=== PATIENT | male | born 1945 | race Caucasian/White ===

== ENCOUNTER → 2018-11-23 | Outpatient (CLI) | payer MEDICARE, BC ==
[~2018-11-23] MED LIST: ALBU3IS; ALBU90OI INH; ALBU90OI6; ALPR.25 PO; AMLO5 PO; Accuneb0.63 MG/3; BUDE6HFA INH; FAMO20 PO; HYDCHL25 PO; HYDCHLSU; HYDROEYE PO; LEVFLO500 PO; LISI20 PO; MONT10T PO; Multivitamin1 EAC1 PO; PRED20 PO; TAMS.4ER PO; TIOT18
== END | disposition home or self-care (01) ==
LOC: LAB SHORT 13:45 → PLD 13:45
DX: C44.729 Squamous cell carcinoma of skin of left lower limb, including hip (principal)
CPT/HCPCS: 88305

== ENCOUNTER → 2018-12-20 | Outpatient (CLI) | payer MEDICARE, BC | END | disposition home or self-care (01) | LOC: PLD 14:04 → LAB SHORT 14:04 | DX: C44.729 Squamous cell carcinoma of skin of left lower limb, including hip (principal) | CPT/HCPCS: 88305 ==

== ENCOUNTER → 2019-05-23 | Outpatient (CLI) | payer MEDICARE, BC | END | disposition home or self-care (01) | LOC: LAB SHORT 10:15 → PLD 10:15 | DX: L57.0 Actinic keratosis (principal) | CPT/HCPCS: 88305 ==

== ENCOUNTER → 2019-11-28 | Outpatient (CLI) | payer MEDICARE, BC | END | disposition home or self-care (01) | LOC: LAB SHORT 11:15 → PLD 11:15 | DX: L82.1 Other seborrheic keratosis (principal) | CPT/HCPCS: 88305 ==

== ENCOUNTER 2020-01-09 06:01 | Day surgery (SDC) | payer MEDICARE, BC ==
[~2020-01-09] VITALS: Ht 172.7 cm; Wt 114.4 kg
[~2020-01-09 06:01] MED LIST changes: -ALBU3IS; +ALBU3IS NEB; +AZIT250 PO; +Atrovent Inha12.9 GM NEB; +BUDE10.22 INH; +Doxycycline Mo100 M1 PO
[2020-01-09] MEDS ORDERED: CHLO25B PO (06:22)
[2020-01-09] MEDS ORDERED: METO25ER PO (06:22)
--- NOTE | 2020-01-09 10:26 | NUR ---
Ambulatory in Day Surgery. Surgical site prepped with 2% Chlorhexidine cloth wipe. History, Chart, Medications and Allergies reviewed before start of procedure.Lungs clear T/O to Auscultation. Patient confirms NPO status and agrees with scheduled surgery. Pre-Op teaching done. Pt verbalizes understanding. Patient States Post-Procedure ride home has been arranged. Patient reports completing Chlorhexadine shower X2 prior to admission to hospital.
--- NOTE | 2020-01-09 11:28 | NUR ---
POST OP: REPORT RECEIVED FROM JUANJOSE, FISCAL ACCOUNTING CLERK AT BEDSIDE. UPON ASSESSMENT PT IS A/O, VSS, SITTING UP IN BED APPEARS COMFORTABLE. SURGICAL SITE WNL. PT AT BEDSIDE. WILL CTM
--- NOTE | 2020-01-09 14:15 | NUR ---
This patient gave this student nurse permission to aid in his care for the morning of 01/10/2020.
--- NOTE | 2020-01-09 19:14 | NUR ---
SUMMARY: NO ACUTE CHANGE SINCE POST OP. PAIN SEEMS TO BE WELL MANAGED WITH 2 OXYCODONE. PT ISAIAH REG DIET. ABLE TO AMBULATE WITH THERAPY. SURGICAL SITE WNL. NO SAFETY CONCERNS. REPORT GIVEN TO PARAS OLIVEROS
--- NOTE | 2020-01-10 03:31 | NUR ---
SHIFT SUMMARY POD 1 S/P LEFT TKA, DRESSING C.D.I W/POLAR PACK IN PLACE ISAIAH. PAIN MANAGED WITH PO MEDICATION. TOLERATING REGULAR DIET. DENIES N/V. OUT OF BED W/FWW AND SBA. AMBULATING IN HALLWAY. VSS. PLAN FOR POSSIBLE DISCHARGE TODAY.
--- NOTE | 2020-01-10 03:53 | NUR ---
ASSUMING CARE OF PT AT THIS TIME. REPORT RECIEVED FROM KELLEY OLIVEROS.
[2020-01-10 04:42] LABS: BASOPHILS ABSOLUTE AUTO 0.02 K/mm3 (0.00-0.23); BASOPHILS PERCENT AUTO 0 % (0-2); EOSINOPHILS ABSOLUTE AUTO 0.06 K/mm3 (0.00-0.68); EOSINOPHILS PERCENT AUTO 1 % (0-6); Hematocrit 37.6 % (37.0-53.0); Hemoglobin 12.6 g/dL (13.5-17.5); IMMATURE GRAN ABSOLUTE AUTO 0.04 K/mm3 (0.00-0.10); IMMATURE GRAN PERCENT AUTO 0 % (0-1); LYMPHOCYTES PERCENT AUTO 10 % (21-46); MONOCYTES ABSOLUTE AUTO 1.02 K/mm3 (0.16-1.47); MONOCYTES PERCENT AUTO 8 % (4-13); Mean Corpuscular HGB 33.1 pg (26.0-34.0); Mean Corpuscular HGB Conc 33.5 g/dL (31.5-36.5); Mean Corpuscular Volume 99 fL (80-100); Mean Platelet Volume 9.2 fL (9.1-12.4); NEUTROPHILS ABSOLUTE AUTO 9.85 K/mm3 (1.96-9.15); NEUTROPHILS PERCENT AUTO 81 % (41-73); Platelet Count 228 K/mm3 (150-400); RDW Coefficient Variation 12.4 % (11.7-14.2); RDW Standard Deviation 45.6 fL (35.1-46.3); Red Blood Cell Count 3.81 M/mm3 (4.30-5.90); White Blood Cell Count 12.19 K/mm3 (4.00-11.30)
[2020-01-10 05:08] LABS: Anion Gap 8 mmol/L (6-16); Blood Urea Nitrogen 26 mg/dL (8-24); Bun/Creatinine Ratio 21.1 (12.0-20.0); CO2, Blood 27 mmol/L (21-32); Calcium, Blood 9.1 mg/dL (8.5-10.1); Chloride, Blood 103 mmol/L (98-108); Creatinine, Blood 1.23 mg/dL (0.60-1.20); Glomerular Filtration Rate >60 (60-); Glucose, Blood 108 mg/dL (70-99); Magnesium, Blood 2.1 mg/dL (1.6-2.4); Potassium, Blood 4.2 mmol/L (3.5-5.5); Sodium, Blood 138 mmol/L (136-145)
[2020-01-10] MEDS ORDERED: ACET500 PO (09:48)
[2020-01-10] MEDS ORDERED: OXYC5 PO (09:50)
--- NOTE | 2020-01-10 10:38 | NUR ---
assumed care of patient at 0900 for Heather BENSON. Pt doing well, denies pain at this time, up with PT. Call to Dr. Gupta regarding therapy not scheduled for 2 weeks, new referral sent to [facility] per pt and spouse request.
--- NOTE | 2020-01-10 11:50 | NUR ---
DISCHARGE: PACKET PRINTED AND PT EDUCATED. SENT WITH SCRIPT AND EXTRA AQUACEL DRESSINGS. LEFT UNIT VIA WHEELCHAIR AT 1145
--- NOTE | 2020-01-10 12:54 | NUR ---
01/10/20 1254 Gretta Woodruff VERIFICATIONS, AUDITS.
== END 2020-01-10 11:50 | disposition home or self-care (01) ==
LOC: ORSCMMR 06:01 → ORD 07:30 → SURS 11:00 → ORSCMMR 01-10 11:50
PROVIDERS: Orthopaedic Surgery
PROC: 0SRD0J9 Replacement of Left Knee Joint with Synthetic Substitute, Cemented, Open Approach (ICD-10-PCS; principal; 2020-01-09 07:30)
DX: M17.12 Unilateral primary osteoarthritis, left knee (principal); I10 Essential (primary) hypertension; Z87.891 Personal history of nicotine dependence; E66.01 Morbid (severe) obesity due to excess calories; Z68.38 Body mass index [BMI] 38.0-38.9, adult; Z79.899 Other long term (current) drug therapy
CPT/HCPCS: 36415; 73560-LT; 80048; 83735; 85025; 88300; 94640; 94760; 97110; 97116; 97162; A9270-GY; C1713; C1776; J0171; J0690; J0735; J1100; J1885; J2250; J2370; J2405; J2704; J2765; J2795; J3010; J7120; J7512

== ENCOUNTER → 2020-03-05 | Outpatient (CLI) | payer MEDICARE, BC ==
[~2020-03-05] MED LIST changes: +ACET500 PO; +CHLO25B PO; +METO25ER PO; +OXYC5 PO
== END | disposition home or self-care (01) ==
LOC: PLD 12:02 → LAB SHORT 12:02
DX: C44.629 Squamous cell carcinoma of skin of left upper limb, including shoulder (principal)
CPT/HCPCS: 88305

== ENCOUNTER → 2020-03-14 | Outpatient (CLI) | payer MEDICARE, BC | END | disposition home or self-care (01) | LOC: LAB SHORT 12:45 → PLD 12:45 | DX: L57.8 Other skin changes due to chronic exposure to nonionizing radiation (principal) | CPT/HCPCS: 88305 ==

== ENCOUNTER 2021-04-16 11:56 | Day surgery (SDC) | payer MEDICARE, BC ==
[~2021-04-16] VITALS: Ht 172.7 cm; Wt 115.5 kg
[~2021-04-16 11:56] MED LIST changes: +FINA5 PO; +IPRAT-ALBUT 0.5-3 ML INH; +PULMICORT0.5 MG/21 INH
--- NOTE | 2021-04-16 12:31 | NUR ---
04/16/21 1231 Dorinda Gordon PT REPORTS HE IS MORE SOB THAN NORMAL. STATES HE USES 2L OF O2 AT NIGHT. PT DID A NEBULIZER TREATMENT THIS MORNING AT APPROX [phone] AND USED HIS PROAIR INHALER JUST PRIOR TO ADMISSION. DR RODAS NOTIFIED, RECEIVED ORDER FOR DUONEB X1 NOW. ADMINISTERED TO PATIENT. PT STATES SOB IS BETTER. HE THINKS IT MAY BE BECAUSE HE IS NERVOUS.
== END 2021-04-16 15:14 | disposition home or self-care (01) ==
LOC: ORSCSDS 11:56
PROVIDERS: Student in an Organized Health Care Education/Training Program
PROC: 0DBK8ZX Excision of Ascending Colon, Via Natural or Artificial Opening Endoscopic, Diagnostic (ICD-10-PCS; principal; 2021-04-16 13:15)
PROC: 0DBN8ZX Excision of Sigmoid Colon, Via Natural or Artificial Opening Endoscopic, Diagnostic (ICD-10-PCS; principal; 2021-04-16 13:15)
PROC: 0DBM8ZX Excision of Descending Colon, Via Natural or Artificial Opening Endoscopic, Diagnostic (ICD-10-PCS; principal; 2021-04-16 13:15)
PROC: 0DBL8ZX Excision of Transverse Colon, Via Natural or Artificial Opening Endoscopic, Diagnostic (ICD-10-PCS; principal; 2021-04-16 13:15)
PROC: 0DBP8ZX Excision of Rectum, Via Natural or Artificial Opening Endoscopic, Diagnostic (ICD-10-PCS; principal; 2021-04-16 13:15)
DX: R19.5 Other fecal abnormalities (principal); D12.5 Benign neoplasm of sigmoid colon; D12.3 Benign neoplasm of transverse colon; D12.2 Benign neoplasm of ascending colon; D12.4 Benign neoplasm of descending colon; D12.8 Benign neoplasm of rectum; I10 Essential (primary) hypertension; J44.9 Chronic obstructive pulmonary disease, unspecified; Z87.891 Personal history of nicotine dependence; K21.9 Gastro-esophageal reflux disease without esophagitis; Z99.81 Dependence on supplemental oxygen; E66.01 Morbid (severe) obesity due to excess calories; Z68.38 Body mass index [BMI] 38.0-38.9, adult; Z79.899 Other long term (current) drug therapy
CPT/HCPCS: 88305; A9270; J2704; J7120

== ENCOUNTER → 2022-02-21 | Outpatient (CLI) | payer MEDICARE, BC | END | disposition home or self-care (01) | LOC: LAB SHORT 13:20 | DX: M67.442 Ganglion, left hand (principal) | CPT/HCPCS: 88304 ==

== ENCOUNTER 2022-08-25 02:49 | Day surgery (SDC) | payer MEDICARE, BC ==
[2022-08-25] MEDS ORDERED: STIOLTO RESPIMAT4 G1 INH (08:59)
[2022-08-25] MEDS ORDERED: Calcium Carbon500 MG (08:59)
[2022-08-25] MEDS ORDERED: PRESERVISION A1 EAC1 PO (09:00)
[2022-08-25] MEDS ORDERED: BENZ100A PO (09:00)
== END 2022-08-25 08:43 | disposition home or self-care (01) ==
LOC: ATC 02:49
DX: J44.9 Chronic obstructive pulmonary disease, unspecified (principal); E78.5 Hyperlipidemia, unspecified; I10 Essential (primary) hypertension
CPT/HCPCS: 96372

== ENCOUNTER 2022-09-25 00:46 | Day surgery (SDC) | payer MEDICARE, BC ==
[~2022-09-25 00:46] MED LIST changes: +BENZ100A PO; +Calcium Carbon500 MG; +PRESERVISION A1 EAC1 PO; +STIOLTO RESPIMAT4 G1 INH
== END 2022-09-25 08:39 | disposition home or self-care (01) ==
LOC: ATC 00:46
DX: J44.9 Chronic obstructive pulmonary disease, unspecified (principal); I10 Essential (primary) hypertension
CPT/HCPCS: 96372; J2182

== ENCOUNTER 2022-11-24 02:10 | Day surgery (SDC) | payer MEDICARE, BC | END 2022-11-24 09:05 | disposition home or self-care (01) | LOC: ATC 02:10 | DX: J44.9 Chronic obstructive pulmonary disease, unspecified (principal); E78.5 Hyperlipidemia, unspecified; I10 Essential (primary) hypertension | CPT/HCPCS: 96372; J2182 ==

== ENCOUNTER 2022-12-25 03:35 | Day surgery (SDC) | payer MEDICARE, BC | END 2022-12-25 09:28 | disposition home or self-care (01) | LOC: ATC 03:35 | DX: J44.9 Chronic obstructive pulmonary disease, unspecified (principal); Z79.899 Other long term (current) drug therapy | CPT/HCPCS: 96372; J2182 ==

== ENCOUNTER → 2022-12-31 | Outpatient (CLI) | payer MEDICARE, BC | END | disposition home or self-care (01) | LOC: LAB SHORT 12:01 → PLD 12:01 | DX: D48.5 Neoplasm of uncertain behavior of skin (principal) | CPT/HCPCS: 88305 ==

== ENCOUNTER 2023-01-22 02:15 | Day surgery (SDC) | payer MEDICARE, BC | END 2023-01-22 09:37 | disposition home or self-care (01) | LOC: ATC 02:15 | DX: J44.9 Chronic obstructive pulmonary disease, unspecified (principal) | CPT/HCPCS: 96372; J2182 ==

== ENCOUNTER 2023-03-05 02:45 | Day surgery (SDC) | payer MEDICARE, BC ==
[2023-03-05 09:25] VITALS: BP 153/73
== END 2023-03-05 09:33 | disposition home or self-care (01) ==
LOC: ATC 02:45
DX: J44.9 Chronic obstructive pulmonary disease, unspecified (principal); E78.5 Hyperlipidemia, unspecified; I10 Essential (primary) hypertension; Z79.899 Other long term (current) drug therapy
CPT/HCPCS: 96372; J2182

== ENCOUNTER 2023-04-03 02:32 | Day surgery (SDC) | payer MEDICARE, BC ==
[2023-04-03 08:46] VITALS: BP 141/65
== END 2023-04-03 09:20 | disposition home or self-care (01) ==
LOC: ATC 02:32
DX: J44.9 Chronic obstructive pulmonary disease, unspecified (principal); E78.5 Hyperlipidemia, unspecified; I10 Essential (primary) hypertension
CPT/HCPCS: 96372; J2182

== ENCOUNTER 2023-05-14 01:07 | Day surgery (SDC) | payer MEDICARE, BC ==
[2023-05-14 09:26] VITALS: BP 136/67
== END 2023-05-14 09:31 | disposition home or self-care (01) ==
LOC: ATC 01:07
DX: J44.9 Chronic obstructive pulmonary disease, unspecified (principal); J40 Bronchitis, not specified as acute or chronic
CPT/HCPCS: 96372; J2182

== ENCOUNTER 2023-06-23 01:37 | Day surgery (SDC) | payer MEDICARE, BC ==
[2023-06-23 08:55] VITALS: BP 144/80
== END 2023-06-23 09:00 | disposition home or self-care (01) ==
LOC: ATC 01:37
DX: J44.9 Chronic obstructive pulmonary disease, unspecified (principal); I10 Essential (primary) hypertension; E11.9 Type 2 diabetes mellitus without complications; E78.5 Hyperlipidemia, unspecified; Z87.891 Personal history of nicotine dependence; Z79.84 Long term (current) use of oral hypoglycemic drugs; Z79.899 Other long term (current) drug therapy
CPT/HCPCS: 96372; J2182

== ENCOUNTER 2023-07-24 00:20 | Day surgery (SDC) | payer MEDICARE, BC ==
[2023-07-24 09:05] VITALS: BP 156/78
== END 2023-07-24 09:15 | disposition home or self-care (01) ==
LOC: ATC 00:20
DX: J44.9 Chronic obstructive pulmonary disease, unspecified (principal); I10 Essential (primary) hypertension; E11.9 Type 2 diabetes mellitus without complications; E78.5 Hyperlipidemia, unspecified; Z87.891 Personal history of nicotine dependence; Z79.84 Long term (current) use of oral hypoglycemic drugs; Z79.899 Other long term (current) drug therapy
CPT/HCPCS: 96372; J2182

== ENCOUNTER 2023-08-24 02:06 | Day surgery (SDC) | payer MEDICARE, BC ==
[2023-08-24 09:53] VITALS: BP 147/61
[2023-08-24] MEDS ORDERED: NUCALA100 MG SC ×2 (09:57→09:59)
== END 2023-08-24 10:10 | disposition home or self-care (01) ==
LOC: ATC 02:06
DX: J44.9 Chronic obstructive pulmonary disease, unspecified (principal); E11.9 Type 2 diabetes mellitus without complications; E78.5 Hyperlipidemia, unspecified; I10 Essential (primary) hypertension; Z87.891 Personal history of nicotine dependence
CPT/HCPCS: 96372; J2182

== ENCOUNTER → 2023-09-01 | Outpatient (CLI) | payer MEDICARE, BC ==
[~2023-09-01] MED LIST changes: +NUCALA100 MG SC
== END | disposition home or self-care (01) ==
LOC: LAB SHORT 12:24 → LAB 12:24
DX: L57.0 Actinic keratosis (principal)
CPT/HCPCS: 88305

== ENCOUNTER 2023-09-23 06:04 | Day surgery (SDC) | payer MEDICARE, BC ==
[2023-09-23] MEDS ORDERED: BUDE.25 INH (08:24)
[2023-09-23 08:27] VITALS: BP 134/73
== END 2023-09-23 08:38 | disposition home or self-care (01) ==
LOC: ATC 06:04
DX: J44.9 Chronic obstructive pulmonary disease, unspecified (principal); E11.9 Type 2 diabetes mellitus without complications; Z79.84 Long term (current) use of oral hypoglycemic drugs; E78.5 Hyperlipidemia, unspecified; I10 Essential (primary) hypertension; Z87.891 Personal history of nicotine dependence
CPT/HCPCS: 96372; J2182

== ENCOUNTER 2023-10-23 03:54 | Day surgery (SDC) | payer MEDICARE, BC ==
[~2023-10-23 03:54] MED LIST changes: +ALBU2.5V5 INH; +BUDE.25 INH; +CALCIUM PO
[2023-10-23 08:12] VITALS: BP 150/74
== END 2023-10-23 08:28 | disposition home or self-care (01) ==
LOC: ATC 03:54
DX: J44.9 Chronic obstructive pulmonary disease, unspecified (principal); E11.9 Type 2 diabetes mellitus without complications; E78.5 Hyperlipidemia, unspecified; I10 Essential (primary) hypertension; Z79.899 Other long term (current) drug therapy; Z87.891 Personal history of nicotine dependence
CPT/HCPCS: 96372; J2182

== ENCOUNTER 2023-11-03 07:54 | Day surgery (SDC) | payer MEDICARE, BC ==
[2023-11-03] VITALS (17 sets, daily range): BP systolic 104–154; BP diastolic 55–91
[~2023-11-03] VITALS: Ht 172.7 cm; Wt 106.5 kg
--- NOTE | 2023-11-03 09:49 | NUR ---
Patient confirms NPO status and agrees with scheduled surgery. History, Chart, Medications and Allergies reviewed before start of procedure. Surgical site prepped with 2% Chlorhexidine cloth wipe. Patient reports completing Chlorhexadine shower X2 prior to admission to hospital.
--- NOTE | 2023-11-03 10:59 | NUR ---
11/03/23 1059 Madyson Ramesh SPINAL NERVE BLOCK COMPLETED BY DR. LEMUS UPON ENTRY TO OR. PT TOLERATED WELL.
[2023-11-04 02:56] VITALS: BP 149/90
[2023-11-04 05:04] LABS: BASOPHILS ABSOLUTE AUTO 0.02 K/mm3 (0.00-0.23); BASOPHILS PERCENT AUTO 0 % (0-2); EOSINOPHILS PERCENT AUTO 0 % (0-6); Hemoglobin 12.2 g/dL (13.5-17.5); IMMATURE GRAN ABSOLUTE AUTO 0.07 K/mm3 (0.00-0.10); IMMATURE GRAN PERCENT AUTO 1 % (0-1); LYMPHOCYTES ABSOLUTE AUTO 1.07 K/mm3 (0.84-5.20); LYMPHOCYTES PERCENT AUTO 8 % (21-46); MONOCYTES ABSOLUTE AUTO 1.03 K/mm3 (0.16-1.47); MONOCYTES PERCENT AUTO 8 % (4-13); Mean Corpuscular HGB 34.3 pg (26.0-34.0); Mean Corpuscular HGB Conc 34.9 g/dL (31.5-36.5); Mean Corpuscular Volume 98 fL (80-100); Mean Platelet Volume 9.2 fL (9.1-12.4); NEUTROPHILS ABSOLUTE AUTO 11.21 K/mm3 (1.96-9.15); NEUTROPHILS PERCENT AUTO 84 % (41-73); Platelet Count 204 K/mm3 (150-400); RDW Standard Deviation 43.5 fL (35.1-46.3); Red Blood Cell Count 3.56 M/mm3 (4.30-5.90)
[2023-11-04 05:27] LABS: Bun/Creatinine Ratio 23.7 (12.0-20.0); Calcium, Blood 8.3 mg/dL (8.5-10.1); Creatinine, Blood 1.31 mg/dL (0.60-1.20); Magnesium, Blood 2.2 mg/dL (1.6-2.4); Potassium, Blood 3.9 mmol/L (3.5-5.5)
--- NOTE | 2023-11-04 06:45 | NUR ---
POD 1 S/P R TKA. PT VSS T/O NIGHT. DRESSING CDI. PULSES AND CAP REFILL WNL, PT REP SENSATION AT BASELINE. PAIN MGD W/5MG OXYCODONE AND SCHEDULED MEDS W/REP RELIEF. PT ISAIAH PO, DENIED N/V, IS VOIDING URINE W/O DIFFICULTY. PT AMB IN HALLS W/FWW+SBA, ISAIAH WELL. PLAN TO MOBILIZE W/PT AND DC HOME WHEN CLEARED.
[2023-11-04 07:14] VITALS: BP 142/76
[2023-11-04] MEDS ORDERED: OXYC5 PO (08:24)
[2023-11-04] MEDS ORDERED: ASPI81CH PO (08:24)
[2023-11-04] MEDS ORDERED: SULTRIDS PO (08:24)
--- NOTE | 2023-11-04 10:00 | NUR ---
DISCHARGE NOTE: PATIENT WAS EDUCATED ON DISCHARGE INSTRUCTIONS. HE VERBALIZED UNDERSTANDING OF INSTRUCTIONS AND HAD NO FURTHER QUESTIONS AT THIS TIME. IV WAS TAKEN OUT AND WNL. HIS RIGHT KNEE HAS AN AQUACEL THAT IS C/D/I. DENIES NUMBNESS OR TINGLING IN ALL EXTREMITIES. HE IS A SBA WITH FWW AND GAIT BELT. PATIENT IS TOLERATING PO INTAKE AND IS VOIDING. HE IS DRESSED AND HAS ALL PERSONAL ITEMS IN THE ROOM GATHERED. PATIENT IS LAYING IN THE RECLINER CHAIR WITH CALL LIGHT IN REACH WAITING FOR HIS RIDE TO PICK HIM UP TO TAKE HIM HOME.
--- NOTE | 2023-11-04 14:46 | NUR ---
PATIENT WAS JUST WHEELCHAIRED OUT TO HIS WIFES CAR TO BE TAKEN HOME. HE HAS ALL OF HIS PERSONAL BELONGINGS WITH HIM THAT WAS IN THE ROOM.
== END 2023-11-04 14:47 | disposition home or self-care (01) ==
LOC: ORSCMMR 07:54 → ORD 10:15 → SURS 12:59 → ORSCMMR 13:00 → SURS 11-04 14:47
PROVIDERS: Orthopaedic Surgery
PROC: 0SRC0JA Replacement of Right Knee Joint with Synthetic Substitute, Uncemented, Open Approach (ICD-10-PCS; principal; 2023-11-03 10:15)
DX: M17.11 Unilateral primary osteoarthritis, right knee (principal); J44.9 Chronic obstructive pulmonary disease, unspecified; E11.9 Type 2 diabetes mellitus without complications; E78.5 Hyperlipidemia, unspecified; I10 Essential (primary) hypertension; Z96.652 Presence of left artificial knee joint; Z87.891 Personal history of nicotine dependence; Z85.820 Personal history of malignant melanoma of skin; Z79.899 Other long term (current) drug therapy; Z68.35 Body mass index [BMI] 35.0-35.9, adult
CPT/HCPCS: 36415; 73560-RT; 80048; 82947; 83735; 85025; 94640; 94664; 94760; 97110; 97116; 97162; A9270; C1713; C1776; J0171; J0690; J0735; J1100; J1885; J2250; J2371; J2704; J2795; J3010; J7120

== ENCOUNTER 2023-11-26 01:53 | Day surgery (SDC) | payer MEDICARE, BC ==
[~2023-11-26 01:53] MED LIST changes: +ASPI81CH PO; +SULTRIDS PO
[2023-11-26 09:15] VITALS: BP 132/73
== END 2023-11-26 09:20 | disposition home or self-care (01) ==
LOC: ATC 01:53
DX: J44.9 Chronic obstructive pulmonary disease, unspecified (principal); E11.9 Type 2 diabetes mellitus without complications; E78.5 Hyperlipidemia, unspecified; I10 Essential (primary) hypertension; Z79.899 Other long term (current) drug therapy; Z79.84 Long term (current) use of oral hypoglycemic drugs; Z79.52 Long term (current) use of systemic steroids; Z87.891 Personal history of nicotine dependence
CPT/HCPCS: 96372; J2182

== ENCOUNTER 2023-12-29 03:33 | Day surgery (SDC) | payer MEDICARE, BC ==
[2023-12-29] MEDS ORDERED: MEPOLIZUMAB 100 MG VIAL SC SCH (06:00)
[2023-12-29 10:33] VITALS: BP 135/70
== END 2023-12-29 10:55 | disposition home or self-care (01) ==
LOC: ATC 03:33
DX: J44.9 Chronic obstructive pulmonary disease, unspecified (principal); E11.9 Type 2 diabetes mellitus without complications; E78.5 Hyperlipidemia, unspecified; I10 Essential (primary) hypertension; Z79.899 Other long term (current) drug therapy
CPT/HCPCS: 96372; J2182

== ENCOUNTER → 2024-03-02 | Outpatient (CLI) | payer MEDICARE, BC | END | disposition home or self-care (01) | LOC: LAB SHORT 12:32 → LAB EV 12:32 | DX: L73.8 Other specified follicular disorders (principal); B37.2 Candidiasis of skin and nail | CPT/HCPCS: 88305 ==

== ENCOUNTER 2024-04-21 02:56 | Day surgery (SDC) | payer MEDICARE, BC ==
[2024-04-21] MEDS ORDERED: MEPOLIZUMAB 100 MG VIAL SC SCH (06:00)
[2024-04-21 07:53] VITALS: BP 151/73
== END 2024-04-21 07:59 | disposition home or self-care (01) ==
LOC: ATC 02:56
DX: J44.9 Chronic obstructive pulmonary disease, unspecified (principal); J45.50 Severe persistent asthma, uncomplicated; I10 Essential (primary) hypertension; E78.5 Hyperlipidemia, unspecified; E11.9 Type 2 diabetes mellitus without complications; E53.8 Deficiency of other specified B group vitamins; Z87.891 Personal history of nicotine dependence; Z79.899 Other long term (current) drug therapy
CPT/HCPCS: 36415; 80053; 82607; 83036; 85025; 96372; J2182

== ENCOUNTER → 2024-04-21 | Outpatient (CLI) | payer MEDICARE, BC ==
[2024-04-21 09:34] LABS: BASOPHILS ABSOLUTE AUTO 0.03 K/mm3 (0.00-0.23); BASOPHILS PERCENT AUTO 0 % (0-2); EOSINOPHILS ABSOLUTE AUTO 0.04 K/mm3 (0.00-0.68); EOSINOPHILS PERCENT AUTO 1 % (0-6); Hematocrit 36.4 % (37.0-53.0); Hemoglobin 12.8 g/dL (13.5-17.5); IMMATURE GRAN ABSOLUTE AUTO 0.03 K/mm3 (0.00-0.10); IMMATURE GRAN PERCENT AUTO 0 % (0-1); LYMPHOCYTES ABSOLUTE AUTO 1.66 K/mm3 (0.84-5.20); LYMPHOCYTES PERCENT AUTO 24 % (21-46); MONOCYTES ABSOLUTE AUTO 0.68 K/mm3 (0.16-1.47); MONOCYTES PERCENT AUTO 10 % (4-13); Mean Corpuscular HGB 33.3 pg (26.0-34.0); Mean Corpuscular HGB Conc 35.2 g/dL (31.5-36.5); Mean Corpuscular Volume 95 fL (80-100); Mean Platelet Volume 8.8 fL (9.1-12.4); NEUTROPHILS ABSOLUTE AUTO 4.56 K/mm3 (1.96-9.15); NEUTROPHILS PERCENT AUTO 65 % (41-73); Platelet Count 212 K/mm3 (150-400); RDW Coefficient Variation 12.9 % (11.7-14.2); RDW Standard Deviation 44.2 fL (35.1-46.3); Red Blood Cell Count 3.84 M/mm3 (4.30-5.90)
[2024-04-21 11:33] LABS: Albumin, Blood 3.5 g/dL (3.4-5.0); Bilirubin, Total 0.7 mg/dL (0.1-1.0); Bun/Creatinine Ratio 17.6 (12.0-20.0); Calcium, Blood 9.4 mg/dL (8.5-10.1); Creatinine, Blood 1.08 mg/dL (0.60-1.20); Globulin, Blood 3.6 g/dL (2.2-4.0); Potassium, Blood 4.4 mmol/L (3.5-5.5); Total Protein, Blood 7.1 g/dL (6.4-8.2)
== END ==
LOC: LAB 09:13 → LAB SHORT 09:13
PROVIDERS: Family Medicine
DX: E53.8 Deficiency of other specified B group vitamins (principal); I10 Essential (primary) hypertension; R73.03 Prediabetes
CPT/HCPCS: 36415; 80053; 82607; 83036; 85025

== ENCOUNTER 2024-05-20 01:46 | Day surgery (SDC) | payer MEDICARE, BC ==
[2024-05-20] MEDS ORDERED: MEPOLIZUMAB 100 MG VIAL SC SCH (06:00)
[2024-05-20 08:00] VITALS: BP 149/74
== END 2024-05-20 08:10 | disposition home or self-care (01) ==
LOC: ATC 01:46
DX: J44.89 Other specified chronic obstructive pulmonary disease (principal); J45.50 Severe persistent asthma, uncomplicated; I10 Essential (primary) hypertension; E11.9 Type 2 diabetes mellitus without complications; E78.5 Hyperlipidemia, unspecified; Z87.891 Personal history of nicotine dependence; Z79.899 Other long term (current) drug therapy
CPT/HCPCS: 96372; J2182

== ENCOUNTER 2024-08-18 02:50 | Day surgery (SDC) | payer MEDICARE, BC ==
[2024-08-18] MEDS ORDERED: MEPOLIZUMAB 100 MG VIAL SC SCH (06:00)
[2024-08-18 07:52] VITALS: BP 164/74
== END 2024-08-18 07:53 | disposition home or self-care (01) ==
LOC: ATC 02:50
DX: J44.9 Chronic obstructive pulmonary disease, unspecified (principal)
CPT/HCPCS: 96372; J2182

== ENCOUNTER 2024-09-01 02:44 | Day surgery (SDC) | payer MEDICARE, BC | END 2024-09-01 23:18 | disposition home or self-care (01) | LOC: WOUND 02:44 | DX: L89.151 Pressure ulcer of sacral region, stage 1 (principal); J44.9 Chronic obstructive pulmonary disease, unspecified; Z88.5 Allergy status to narcotic agent | CPT/HCPCS: G0463 ==

== ENCOUNTER 2024-09-15 05:28 | Day surgery (SDC) | payer MEDICARE, BC ==
[2024-09-15] MEDS ORDERED: MEPOLIZUMAB 100 MG VIAL SC SCH (06:00)
[2024-09-15 07:50] VITALS: BP 160/79
== END 2024-09-15 07:58 | disposition home or self-care (01) ==
LOC: ATC 05:28
DX: J44.9 Chronic obstructive pulmonary disease, unspecified (principal); J45.51 Severe persistent asthma with (acute) exacerbation; E78.5 Hyperlipidemia, unspecified; E11.9 Type 2 diabetes mellitus without complications; I10 Essential (primary) hypertension; Z79.899 Other long term (current) drug therapy; Z87.891 Personal history of nicotine dependence
CPT/HCPCS: 96372; J2182

== ENCOUNTER 2024-10-13 03:01 | Day surgery (SDC) | payer MEDICARE, BC ==
[2024-10-13] MEDS ORDERED: MEPOLIZUMAB 100 MG VIAL SC SCH (06:00)
[2024-10-13 07:50] VITALS: BP 149/68
== END 2024-10-13 07:54 | disposition home or self-care (01) ==
LOC: ATC 03:01
DX: J44.9 Chronic obstructive pulmonary disease, unspecified (principal); J45.50 Severe persistent asthma, uncomplicated; E11.9 Type 2 diabetes mellitus without complications; E78.5 Hyperlipidemia, unspecified; I10 Essential (primary) hypertension; Z87.891 Personal history of nicotine dependence; Z79.52 Long term (current) use of systemic steroids; Z79.899 Other long term (current) drug therapy; Z88.8 Allergy status to other drugs, medicaments and biological substances; Z98.52 Vasectomy status
CPT/HCPCS: 96372; J2182

== ENCOUNTER 2024-11-10 04:09 | Day surgery (SDC) | payer MEDICARE, BC ==
[2024-11-10] MEDS ORDERED: MEPOLIZUMAB 100 MG VIAL SC SCH (06:00)
[2024-11-10 07:53] VITALS: BP 157/78
== END 2024-11-10 07:59 | disposition home or self-care (01) ==
LOC: ATC 04:09
DX: J44.9 Chronic obstructive pulmonary disease, unspecified (principal); J45.50 Severe persistent asthma, uncomplicated; E11.9 Type 2 diabetes mellitus without complications; I10 Essential (primary) hypertension; E78.5 Hyperlipidemia, unspecified; Z87.891 Personal history of nicotine dependence; Z79.52 Long term (current) use of systemic steroids; Z79.899 Other long term (current) drug therapy; Z88.8 Allergy status to other drugs, medicaments and biological substances
CPT/HCPCS: 96372; J2182

== ENCOUNTER 2024-12-07 05:32 | Day surgery (SDC) | payer MEDICARE, BC ==
[2024-12-07] MEDS ORDERED: MEPOLIZUMAB 100 MG VIAL SC SCH (06:00)
[2024-12-07 07:30] VITALS: BP 141/79
[2024-12-07] MEDS ORDERED: LOSARTAN POTAS100 M1 PO (07:43)
== END 2024-12-07 07:48 | disposition home or self-care (01) ==
LOC: ATC 05:32
DX: J44.9 Chronic obstructive pulmonary disease, unspecified (principal); E11.9 Type 2 diabetes mellitus without complications; Z88.2 Allergy status to sulfonamides; Z88.8 Allergy status to other drugs, medicaments and biological substances
CPT/HCPCS: 96372; J2182

== ENCOUNTER 2025-01-04 01:52 | Day surgery (SDC) | payer MEDICARE, BC ==
[~2025-01-04 01:52] MED LIST changes: +LOSARTAN POTAS100 M1 PO; +MEPOLIZUMAB 100 MG VIAL SC SCH
[2025-01-04 07:40] VITALS: BP 158/74
== END 2025-01-04 07:46 | disposition home or self-care (01) ==
LOC: ATC 01:52
DX: J44.9 Chronic obstructive pulmonary disease, unspecified (principal); E11.9 Type 2 diabetes mellitus without complications; L40.50 Arthropathic psoriasis, unspecified; M54.9 Dorsalgia, unspecified; G89.29 Other chronic pain; Z79.899 Other long term (current) drug therapy; Z88.2 Allergy status to sulfonamides; Z88.8 Allergy status to other drugs, medicaments and biological substances
CPT/HCPCS: 96372; J2182

== ENCOUNTER 2025-02-03 04:29 | Day surgery (SDC) | payer MEDICARE, BC ==
[2025-02-03 08:14] VITALS: BP 152/76
== END 2025-02-03 08:10 ==
LOC: ATC 04:29
DX: J45.50 Severe persistent asthma, uncomplicated (principal); J41.1 Mucopurulent chronic bronchitis; R91.8 Other nonspecific abnormal finding of lung field; J43.9 Emphysema, unspecified; E11.9 Type 2 diabetes mellitus without complications; E78.5 Hyperlipidemia, unspecified; I10 Essential (primary) hypertension; Z87.891 Personal history of nicotine dependence; Z79.52 Long term (current) use of systemic steroids; Z79.899 Other long term (current) drug therapy
CPT/HCPCS: 96372; J2182

== ENCOUNTER 2025-03-01 02:04 | Day surgery (SDC) | payer MEDICARE, BC ==
[2025-03-01 08:06] VITALS: BP 151/89
== END 2025-03-01 08:19 | disposition home or self-care (01) ==
LOC: ATC 02:04
DX: J45.50 Severe persistent asthma, uncomplicated (principal); J44.89 Other specified chronic obstructive pulmonary disease; E11.9 Type 2 diabetes mellitus without complications; E78.5 Hyperlipidemia, unspecified; I10 Essential (primary) hypertension; Z91.018 Allergy to other foods; Z87.891 Personal history of nicotine dependence; Z79.899 Other long term (current) drug therapy
CPT/HCPCS: 96372; J2182

== ENCOUNTER 2025-03-27 00:52 | Day surgery (SDC) | payer MEDICARE, BC ==
[2025-03-27 08:33] VITALS: BP 159/69
== END 2025-03-27 08:40 | disposition home or self-care (01) ==
LOC: ATC 00:52
DX: J45.50 Severe persistent asthma, uncomplicated (principal); J44.89 Other specified chronic obstructive pulmonary disease; I10 Essential (primary) hypertension; E78.5 Hyperlipidemia, unspecified; E11.9 Type 2 diabetes mellitus without complications; Z87.891 Personal history of nicotine dependence; Z79.899 Other long term (current) drug therapy
CPT/HCPCS: 96372; J2182

== ENCOUNTER 2025-05-22 00:41 | Day surgery (SDC) | payer MEDICARE, BC ==
[~2025-05-22 00:41] MED LIST changes: +METOPROLOL SUCC25 MG PO
[2025-05-22 09:07] VITALS: BP 127/74
== END 2025-05-22 09:00 | disposition home or self-care (01) ==
LOC: ATC 00:41
DX: J45.50 Severe persistent asthma, uncomplicated (principal); J41.1 Mucopurulent chronic bronchitis; R91.8 Other nonspecific abnormal finding of lung field; E11.9 Type 2 diabetes mellitus without complications; E78.5 Hyperlipidemia, unspecified; I10 Essential (primary) hypertension; E66.9 Obesity, unspecified; Z68.39 Body mass index [BMI] 39.0-39.9, adult; Z87.891 Personal history of nicotine dependence; Z79.899 Other long term (current) drug therapy; Z79.52 Long term (current) use of systemic steroids; Z91.011 Allergy to milk products
CPT/HCPCS: 96372; J2182

== ENCOUNTER 2025-06-19 00:12 | Day surgery (SDC) | payer MEDICARE, BC ==
[2025-06-19 08:40] VITALS: BP 133/64
== END 2025-06-19 08:48 | disposition home or self-care (01) ==
LOC: ATC 00:12
DX: J45.50 Severe persistent asthma, uncomplicated (principal); J44.9 Chronic obstructive pulmonary disease, unspecified; E11.9 Type 2 diabetes mellitus without complications; E78.5 Hyperlipidemia, unspecified; I10 Essential (primary) hypertension; E66.9 Obesity, unspecified; Z68.39 Body mass index [BMI] 39.0-39.9, adult; Z87.891 Personal history of nicotine dependence; Z79.899 Other long term (current) drug therapy; Z91.011 Allergy to milk products; Z98.52 Vasectomy status
CPT/HCPCS: 96372; J2182

== ENCOUNTER 2025-07-19 02:24 | Day surgery (SDC) | payer MEDICARE, BC ==
[~2025-07-19 02:24] MED LIST changes: -MEPOLIZUMAB 100 MG VIAL SC SCH
[2025-07-19] MEDS ORDERED: MEPOLIZUMAB 100 MG VIAL SC SCH (07:00)
[2025-07-19 08:24] VITALS: BP 143/87
== END 2025-07-19 08:52 | disposition home or self-care (01) ==
LOC: ATC 02:24
DX: J44.9 Chronic obstructive pulmonary disease, unspecified (principal); J45.50 Severe persistent asthma, uncomplicated; E11.9 Type 2 diabetes mellitus without complications; E78.5 Hyperlipidemia, unspecified; I10 Essential (primary) hypertension; E66.9 Obesity, unspecified; Z68.39 Body mass index [BMI] 39.0-39.9, adult; Z87.891 Personal history of nicotine dependence; Z79.899 Other long term (current) drug therapy; Z91.09 Other allergy status, other than to drugs and biological substances
CPT/HCPCS: 96372; J2182

== ENCOUNTER 2025-09-13 01:43 | Day surgery (SDC) | payer MEDICARE, BC ==
[2025-09-13] MEDS ORDERED: MEPOLIZUMAB 100 MG VIAL SC SCH (06:00)
[2025-09-13 08:40] VITALS: BP 163/84
== END 2025-09-13 08:55 | disposition home or self-care (01) ==
LOC: ATC 01:43
DX: J44.9 Chronic obstructive pulmonary disease, unspecified (principal); J45.50 Severe persistent asthma, uncomplicated; J41.1 Mucopurulent chronic bronchitis; R91.8 Other nonspecific abnormal finding of lung field; E11.9 Type 2 diabetes mellitus without complications; E78.5 Hyperlipidemia, unspecified; I10 Essential (primary) hypertension; Z87.891 Personal history of nicotine dependence; Z79.52 Long term (current) use of systemic steroids; Z79.899 Other long term (current) drug therapy
CPT/HCPCS: 96372; J2182

== ENCOUNTER 2025-10-13 03:29 | Day surgery (SDC) | payer MEDICARE, BC ==
[2025-10-13] MEDS ORDERED: MEPOLIZUMAB 100 MG VIAL SC SCH (06:00)
[2025-10-13 10:40] VITALS: BP 145/46
== END 2025-10-13 11:18 | disposition home or self-care (01) ==
LOC: ATC 03:29
DX: J44.89 Other specified chronic obstructive pulmonary disease (principal); J45.50 Severe persistent asthma, uncomplicated; J41.1 Mucopurulent chronic bronchitis; E11.9 Type 2 diabetes mellitus without complications; E78.5 Hyperlipidemia, unspecified; I10 Essential (primary) hypertension; E66.9 Obesity, unspecified; Z68.39 Body mass index [BMI] 39.0-39.9, adult; Z87.891 Personal history of nicotine dependence; Z79.52 Long term (current) use of systemic steroids; Z79.899 Other long term (current) drug therapy; Z91.0110 Allergy to milk products, unspecified
CPT/HCPCS: 96372; 99211; J2182